=== PATIENT | female | born 1995 | race Caucasian/White ===

== ENCOUNTER 2017-03-16 15:40 | Outpatient (CLI) | payer OTHER ==
[~2017-03-16 15:40] MED LIST: FOLIC ACID0.4 MG; PRENA1 TRUE CO1 EACH
== END 2017-03-17 13:34 | disposition home or self-care (01) ==
LOC: OBS/DEL 15:40
DX: O23.43 Unspecified infection of urinary tract in pregnancy, third trimester (principal); O47.1 False labor at or after 37 completed weeks of gestation; Z34.83 Encounter for supervision of other normal pregnancy, third trimester

== ENCOUNTER 2017-05-13 14:03 | Inpatient (IN) | payer OTHER ==
[~2017-05-13] VITALS: Ht 165.1 cm; Wt 72.6 kg
== END 2017-05-14 21:03 | disposition home or self-care (01) | DRG 774 ==
LOC: LDR 14:03
PROC: 10E0XZZ Delivery of Products of Conception, External Approach (ICD-10-PCS; principal; 2017-05-13)
PROC: 4A1HXCZ Monitoring of Products of Conception, Cardiac Rate, External Approach (ICD-10-PCS; 2017-05-13)
PROC: 3E033VJ Introduction of Other Hormone into Peripheral Vein, Percutaneous Approach (ICD-10-PCS; 2017-05-13)
PROC: BY4FZZZ Ultrasonography of Third Trimester, Single Fetus (ICD-10-PCS; 2017-05-13)
DX: O36.4XX0 Maternal care for intrauterine death, not applicable or unspecified (principal); O11.3 Pre-existing hypertension with pre-eclampsia, third trimester; O41.1230 Chorioamnionitis, third trimester, not applicable or unspecified; O76 Abnormality in fetal heart rate and rhythm complicating labor and delivery; Z3A.37 37 weeks gestation of pregnancy; Z37.1 Single stillbirth